=== PATIENT | female | born 1980 ===

== ENCOUNTER 2016-07-24 07:38 | Emergency (ER) | payer OTHER ==
[2016-07-24 07:42] VITALS: BP 129/76; PULSE 87; TEMP 97; O2SAT 98
[2016-07-24 07:43] VITALS: BMI 37.4
--- NOTE | 2016-07-24 09:57 | US ---
HISTORY: Posttraumatic right upper quadrant pain. COMPARISON: None. TECHNIQUE: Sonographic evaluation of the abdomen. FINDINGS: LIVER: Measures 15.7 cm. Normal echogenicity of the liver parenchyma. No mass. No intrahepatic bile duct dilatation. GALLBLADDER: Unremarkable. No gallstones. COMMON BILE DUCT: Measures 2.8 mm. No stones. No dilatation. PANCREAS: Obscured by overlying bowel gas. Non diagnostic assessment of the pancreas. RIGHT KIDNEY: Measures 10.3cm. Normal echogenicity. No calculus, mass, or hydronephrosis. LEFT KIDNEY: Measures 10.4cm. Normal echogenicity. No calculus, mass, or hydronephrosis. SPLEEN: Normal in size and contour. No mass. AORTA: No aneurysmal dilatation. IVC: Unremarkable. OTHER FINDINGS: None. IMPRESSION: No significant or acute findings to account for/ related to the clinical presentation. Limitations of the current examination: Nonvisualization of the pancreas.
--- NOTE | 2016-07-24 10:19 | ED PDOC ---
HPI: General Adult Time Seen by Provider: 07/24/16 07:47 Chief Complaint (Nursing): Upper Extremity Problem/Injury Chief Complaint (Provider): I fell and hurt my R side History Per: Patient History/Exam Limitations: no limitations Onset/Duration Of Symptoms: Days (3) Current Symptoms Are (Timing): Still Present Severity: Mild Additional Complaint(s): 36yo female states slipped in tub 3 days ago, injuring R side abdomen and lower chest. Denies syncope, head or neck injury. Denies weakness, hematemesis or fever since. Normal BM. No nausea or vomiting. No SOB or chest pain but pain when takes deep breath. Past Medical History Reviewed: Historical Data, Nursing Documentation, Vital Signs Vital Signs: Last Vital Signs Temp 97 F L 07/24/16 07:42 Pulse 87 07/24/16 07:42 Resp BP 129/76 07/24/16 07:42 Pulse Ox 98 07/24/16 07:47 - Medical History PMH: Asthma - Surgical History Surgical History: No Surg Hx - Family History Family History: States: Unknown Family Hx - Social History Current smoker - smoking cessation education provided: No Drugs: Denies - Immunization History Hx Influenza Vaccination: No - Home Medications Home Medications: Ambulatory Orders Medication Instructions Recorded Albuterol HFA [Ventolin HFA 90 2 puff IH [id number] PRN #1 bottle 03/02/16 mcg/actuation (8 g)] Albuterol 0.083% [Albuterol 0.083% 2.5 mg IH Q4H PRN #50 neb 05/06/16 Inhal Jeny (2.5 mg/3 ml) UD] Albuterol 0.083% [Albuterol 0.083% 2.5 mg IH Q8 PRN #100 neb 07/19/16 Inhal Jeny (2.5 mg/3 ml) UD] Albuterol HFA [Ventolin HFA 90 2 puff IH Q4 PRN #1 inhaler 07/19/16 mcg/actuation (8 g)] Ibuprofen [Motrin] 1 tab PO Q8 PRN #21 tab 07/19/16 predniSONE [predniSONE Tab] 3 tab PO DAILY #12 tab 07/19/16 Ibuprofen [Motrin Tab] 600 mg PO Q6 PRN #15 tab 07/24/16 - Allergies Allergies/Adverse Reactions: Allergies Allergy/AdvReac Type Severity Reaction Status Date / Time shrimp Allergy URTICARIA Verified 07/19/16 12:45 Review of Systems ROS Statement: Except As Marked, All Systems Reviewed And Found Negative Constitutional: Negative for: Fever Eyes: Negative for: Pain ENT: Negative for: Ear Pain Cardiovascular: Negative for: Chest Pain, Palpitations Respiratory: Positive for: Other (chest wall pain). Negative for: Cough, Shortness of Breath Gastrointestinal: Positive for: Abdominal Pain. Negative for: Nausea, Vomiting Genitourinary Female: Negative for: Dysuria, Frequency Musculoskeletal: Negative for: Neck Pain, Shoulder Pain, Arm Pain, Back Pain, Hand Pain, Leg Pain Skin: Negative for: Rash, Lesions, Jaundice Neurological: Negative for: Weakness, Numbness, Headache, Dizziness Psych: Negative for: Anxiety Physical Exam - Reviewed Nursing Documentation Reviewed: Yes Vital Signs Reviewed: Yes - Physical Exam Appears: Positive for: Well, Non-toxic, No Acute Distress Head Exam: Positive for: ATRAUMATIC, NORMAL INSPECTION, NORMOCEPHALIC Skin: Positive for: Normal Color, Warm, DRY Eye Exam: Positive for: EOMI, Normal appearance, PERRL ENT: Positive for: Normal ENT Inspection Neck: Positive for: Normal, Painless ROM Cardiovascular/Chest: Positive for: Regular Rate, Rhythm Respiratory: Positive for: CNT, Normal Breath Sounds Gastrointestinal/Abdominal: Positive for: Bowel Sounds, Soft, Tenderness (RUQ mild), Other (7cm area ecchymosis/ contusion (appears several days old) to RUQ) Back: Positive for: Normal Inspection Extremity: Positive for: Normal ROM Neurologic/Psych: Positive for: Alert, Oriented - ECG O2 Sat by Pulse Oximetry: 98 Disposition - Clinical Impression Clinical Impression: Rib contusion, Abdominal wall contusion - Disposition Referrals: J Carlos Kendrick MD [Staff Provider] - Condition: STABLE Additional Instructions: Followup with your doctor in 2-3 days if symptoms persist. Take medications as directed for pain. Return to ER for any weakness or worse symptoms. Prescriptions: Ibuprofen [Motrin Tab] 600 mg PO Q6 PRN #15 tab PRN Reason: Pain, Moderate (4-7) Instructions: Contusion in Adults (ED)
--- NOTE | 2016-07-24 10:25 | RAD ---
PROCEDURE: Radiographs of the Chest and Right Ribs. HISTORY: fall R costal pain COMPARISON: None available. TECHNIQUE: Frontal radiograph of the chest and multiple oblique radiographs of the right ribs were obtained. FINDINGS: RIGHT RIBS: No fracture or focal lesion visualized. LUNGS: Clear. PLEURA: No pneumothorax or pleural fluid. CARDIOVASCULAR: Normal sized heart. No pulmonary vascular congestion. OTHER FINDINGS: None. IMPRESSION: Unremarkable radiographs of the chest and right ribs. No right rib fracture.
== END 2016-07-24 10:44 | disposition home or self-care (01) ==
LOC: H.ER 07:38
DX: S39.91XA Unspecified injury of abdomen, initial encounter (principal); S20.219A Contusion of unspecified front wall of thorax, initial encounter; W19.XXXA Unspecified fall, initial encounter; Y92.89 Other specified places as the place of occurrence of the external cause

== ENCOUNTER 2016-09-13 17:05 | Emergency (ER) | payer OTHER ==
[2016-09-13 17:05] VITALS: BMI 37.4
[2016-09-13 17:10] VITALS: BP 129/98; PULSE 104; TEMP 97.6
[2016-09-13] MEDS ORDERED: Albuterol-Ipratrop 3 mg / 0.5 (3 ml) UD INH STA ×3 (17:17→17:44)
[2016-09-13 17:31] VITALS: RESP 18; O2SAT 99
--- NOTE | 2016-09-13 17:42 | ED PDOC ---
HPI: SOB/CHF/COPD Time Seen by Provider: 09/13/16 17:06 Chief Complaint (Nursing): Shortness Of Breath Chief Complaint (Provider): Asthma - SOB, wheezing x 1 week History Per: Patient History/Exam Limitations: no limitations Onset/Duration Of Symptoms: Days Current Symptoms Are (Timing): Still Present Initiating Event: Out Of Medications, Other (Seasonal allergies ) Current Respiratory Medications: Albuterol (Last used this morning) Severity: None Associated Symptoms: denies: Fever, Chills, Sweating, Dizziness, Light- headedness Past Medical History Reviewed: Historical Data, Nursing Documentation, Vital Signs Vital Signs: Last Vital Signs Temp 97.6 F 09/13/16 17:09 Pulse 104 H 09/13/16 17:09 Resp 18 09/13/16 17:15 BP 129/98 H 09/13/16 17:09 Pulse Ox 99 09/13/16 17:43 - Medical History PMH: Asthma - Surgical History Surgical History: No Surg Hx - Family History Family History: States: Unknown Family Hx - Living Arrangements Living Arrangements: With Family - Social History Current smoker - smoking cessation education provided: No Alcohol: None - Immunization History Hx Influenza Vaccination: No - Home Medications Home Medications: Ambulatory Orders Medication Instructions Recorded Albuterol HFA [Ventolin HFA 90 2 puff IH [id number] PRN #1 bottle 03/02/16 mcg/actuation (8 g)] Albuterol 0.083% [Albuterol 0.083% 2.5 mg IH Q4H PRN #50 neb 05/06/16 Inhal Jeny (2.5 mg/3 ml) UD] Albuterol 0.083% [Albuterol 0.083% 2.5 mg IH Q8 PRN #100 neb 07/19/16 Inhal Jeny (2.5 mg/3 ml) UD] Albuterol HFA [Ventolin HFA 90 2 puff IH Q4 PRN #1 inhaler 07/19/16 mcg/actuation (8 g)] Ibuprofen [Motrin] 1 tab PO Q8 PRN #21 tab 07/19/16 predniSONE [predniSONE Tab] 3 tab PO DAILY #12 tab 07/19/16 Ibuprofen [Motrin Tab] 600 mg PO Q6 PRN #15 tab 07/24/16 Albuterol 0.083% [Albuterol 0.083% 2.5 mg IH QID PRN #20 09/13/16 Inhal Jeny (2.5 mg/3 ml) UD] Albuterol HFA [Ventolin HFA 90 1 puff IH BID PRN #1 unit 09/13/16 mcg/actuation (8 g)] Prednisone 50 mg PO DAILY #3 tablet 09/13/16 - Allergies Allergies/Adverse Reactions: Allergies Allergy/AdvReac Type Severity Reaction Status Date / Time shrimp Allergy URTICARIA Verified 09/13/16 17:08 Review of Systems ROS Statement: Except As Marked, All Systems Reviewed And Found Negative Constitutional: Negative for: Fever, Chills Respiratory: Positive for: Shortness of Breath, Wheezing Physical Exam - Reviewed Nursing Documentation Reviewed: Yes Vital Signs Reviewed: Yes - Physical Exam Appears: Positive for: Well, Non-toxic, No Acute Distress Head Exam: Positive for: ATRAUMATIC, NORMAL INSPECTION, NORMOCEPHALIC Skin: Positive for: Normal Color, Warm, DRY Eye Exam: Positive for: Normal appearance ENT: Positive for: Normal ENT Inspection Neck: Positive for: Normal, Painless ROM Cardiovascular/Chest: Positive for: Regular Rate, Rhythm Respiratory: Positive for: Wheezing (Diffuse ). Negative for: Accessory Muscle Use, Respiratory Distress Gastrointestinal/Abdominal: Positive for: Normal Exam, Bowel Sounds, Soft Back: Positive for: Normal Inspection Extremity: Positive for: Normal ROM Neurologic/Psych: Positive for: Alert, Oriented - ECG O2 Sat by Pulse Oximetry: 99 Pulse Ox Interpretation: Normal Medical Decision Making Medical Decision Makin:16 - Pt reports feeling much better. Disposition - Clinical Impression Clinical Impression: Asthma exacerbation - Patient ED Disposition Is Patient to be Admitted: No Counseled Patient/Family Regarding: Diagnosis, Need For Followup, Rx Given - Disposition Referrals: formerly [facility] [Outside] Disposition: Routine/Home Disposition Time: 18:06 Condition: GOOD Prescriptions: Albuterol 0.083% [Albuterol 0.083% Inhal Jeny (2.5 mg/3 ml) UD] 2.5 mg IH QID PRN #20 PRN Reason: Shortness Of Breath Albuterol HFA [Ventolin HFA 90 mcg/actuation (8 g)] 1 puff IH BID PRN #1 unit PRN Reason: Shortness Of Breath Prednisone 50 mg PO DAILY #3 tablet Instructions: Asthma (ED) Forms: [facility] School/Work Excuse
== END 2016-09-13 18:30 | disposition home or self-care (01) ==
LOC: H.ER 17:05
DX: J45.909 Unspecified asthma, uncomplicated (principal)

== ENCOUNTER 2016-09-15 10:35 | Emergency (ER) | payer OTHER ==
[2016-09-15 11:55] VITALS: BMI 28.7
[2016-09-15] MEDS ORDERED: Albuterol-Ipratrop 3 mg / 0.5 (3 ml) UD INH STA ×3 (11:56→11:57)
[2016-09-15 12:03] VITALS: TEMP 97
[2016-09-15] MEDS ORDERED: Albuterol-Ipratrop 3 mg / 0.5 (3 ml) UD ONE (12:24)
--- NOTE | 2016-09-15 14:33 | ED PDOC ---
HPI: SOB/CHF/COPD Time Seen by Provider: 09/15/16 11:38 Chief Complaint (Nursing): Cough, Cold, Congestion Chief Complaint (Provider): Cough, Cold, Congestion History Per: Patient History/Exam Limitations: no limitations Onset/Duration Of Symptoms: Days Current Symptoms Are (Timing): Still Present Initiating Event: Upper Respiratory Illness Quality: Tightness Exacerbating Factor(s): Coughing Current Respiratory Medications: See Home Med List Severity: Mild Associated Symptoms: denies: Fever Additional Complaint(s): Patient is a 36 year old female with a history of asthma, presents to ED for evaluation of wheezing and chest tightness for 1 week. Patient reports using her pump and nebulizer intermittently but symptoms worsened this morning. Patient also reports a non productive cough. Denies chest pain , palpation or fever . Past Medical History Reviewed: Historical Data, Nursing Documentation, Vital Signs Vital Signs: Last Vital Signs Temp 97 F L 09/15/16 12:00 Pulse 76 09/15/16 12:00 Resp 20 09/15/16 12:36 BP 134/80 09/15/16 12:00 Pulse Ox 97 09/15/16 15:09 - Medical History PMH: Asthma - Surgical History Surgical History: No Surg Hx - Family History Family History: States: Unknown Family Hx - Living Arrangements Living Arrangements: With Family - Immunization History Hx Influenza Vaccination: No - Home Medications Home Medications: Ambulatory Orders Medication Instructions Recorded Albuterol HFA [Ventolin HFA 90 2 puff IH [id number] PRN #1 bottle 03/02/16 mcg/actuation (8 g)] Albuterol 0.083% [Albuterol 0.083% 2.5 mg IH Q4H PRN #50 neb 05/06/16 Inhal Jeny (2.5 mg/3 ml) UD] Albuterol 0.083% [Albuterol 0.083% 2.5 mg IH Q8 PRN #100 neb 07/19/16 Inhal Jeny (2.5 mg/3 ml) UD] Albuterol HFA [Ventolin HFA 90 2 puff IH Q4 PRN #1 inhaler 07/19/16 mcg/actuation (8 g)] Ibuprofen [Motrin] 1 tab PO Q8 PRN #21 tab 07/19/16 predniSONE [predniSONE Tab] 3 tab PO DAILY #12 tab 07/19/16 Ibuprofen [Motrin Tab] 600 mg PO Q6 PRN #15 tab 07/24/16 Albuterol 0.083% [Albuterol 0.083% 2.5 mg IH QID PRN #20 09/13/16 Inhal Jeny (2.5 mg/3 ml) UD] Albuterol HFA [Ventolin HFA 90 1 puff IH BID PRN #1 unit 09/13/16 mcg/actuation (8 g)] Prednisone 50 mg PO DAILY #3 tablet 09/13/16 Albuterol HFA [Ventolin HFA 90 2 puff IH [id number] #1 inh 09/15/16 mcg/actuation (8 g)] Fluticasone/Salmeterol 250/50 1 puff IH Q12 #1 inh 09/15/16 [Advair Diskus] Prednisone 50 mg PO DAILY #5 tablet 09/15/16 - Allergies Allergies/Adverse Reactions: Allergies Allergy/AdvReac Type Severity Reaction Status Date / Time shrimp Allergy URTICARIA Verified 09/15/16 12:00 Review of Systems ROS Statement: Except As Marked, All Systems Reviewed And Found Negative Constitutional: Negative for: Fever Cardiovascular: Negative for: Chest Pain, Palpitations Respiratory: Positive for: Cough, Shortness of Breath, Wheezing. Negative for: Sputum Physical Exam - Reviewed Nursing Documentation Reviewed: Yes Vital Signs Reviewed: Yes - Physical Exam Appears: Positive for: Non-toxic, No Acute Distress Skin: Positive for: Normal Color, Warm. Negative for: Rash Eye Exam: Positive for: Normal appearance Neck: Positive for: Normal, Painless ROM Cardiovascular/Chest: Positive for: Regular Rate, Rhythm. Negative for: Murmur Respiratory: Positive for: Wheezing (occasional). Negative for: Accessory Muscle Use, Rhonchi, Respiratory Distress Extremity: Positive for: Normal ROM. Negative for: Pedal Edema Neurologic/Psych: Positive for: Alert, Oriented - ECG O2 Sat by Pulse Oximetry: 97 (RA) Pulse Ox Interpretation: Normal - Progress Re-evaluation Time: 14:58 Condition: Re-examined, Improved Medical Decision Making Medical Decision Making: Time: 1150 Initial impression: Asthma exacerbation Initial plan: -- EKG -- Duoneb x3 and Prednisone PO 1415 Patient on re-evaluation reports feeling better, stable for discharge at this time. Instructed to follow up with PMD Scribe Attestation: Documented by Manasa Kearney acting as a scribe for Bib Ball MD MD Scribe Attestation: All medical record entries made by the Scribe were at my direction and personally dictated by me. I have reviewed the chart and agree that the record accurately reflects my personal performance of the history, physical exam, medical decision making, and the department course for this patient. I have also personally directed, reviewed, and agree with the discharge instructions and disposition. Disposition - Clinical Impression Clinical Impression: Acute asthma exacerbation - Patient ED Disposition Is Patient to be Admitted: No Doctor Will See Patient In The: Office Counseled Patient/Family Regarding: Studies Performed, Diagnosis, Need For Followup - Disposition Referrals: Edwardo Funes [Family Provider] - Disposition: Routine/Home Disposition Time: 14:15 Condition: GOOD Additional Instructions: Return for worsening. Follow up with your PCP in 2-3 days. Prescriptions: Albuterol HFA [Ventolin HFA 90 mcg/actuation (8 g)] 2 puff IH [id number] #1 inh Fluticasone/Salmeterol 250/50 [Advair Diskus] 1 puff IH Q12 #1 inh Prednisone 50 mg PO DAILY #5 tablet Instructions: Asthma (ED)
[2016-09-15 15:16] VITALS: BP 127/78; PULSE 94; RESP 18; O2SAT 98
--- NOTE | 2016-09-16 13:35 | CARD ---
APPROVED REPORT EKG Measurement Heart [id number] ID [id number] <Conclusion> Normal sinus rhythm with sinus arrhythmia Normal ECG
== END 2016-09-15 15:20 | disposition home or self-care (01) ==
LOC: H.ER 10:35
DX: J45.901 Unspecified asthma with (acute) exacerbation (principal)

== ENCOUNTER 2016-12-06 09:25 | Emergency (ER) | payer OTHER ==
[2016-12-06 09:36] VITALS: BP 135/70; PULSE 82; RESP 16; TEMP 97.8; O2SAT 97
[2016-12-06 09:42] VITALS: BMI 39.6
[2016-12-06] MEDS ORDERED: Albuterol-Ipratrop 3 mg / 0.5 (3 ml) UD INH STA (09:54)
--- NOTE | 2016-12-06 10:00 | ED PDOC ---
HPI: Asthma Time Seen by Provider: 12/06/16 09:44 Chief Complaint (Nursing): Cough, Cold, Congestion History Per: Patient History/Exam Limitations: no limitations Onset/Duration Of Symptoms: Gradual (2 days) Current Symptoms Are (Timing): Still Present Associated Symptoms: Dyspnea, Cough. denies: Fever, Hives, Itching, Chest Pain Severity: Mild Additional History Per: Patient Additional Complaint(s): asthma exacerbation similar to prev no relief with inhaler. no recent hospitalization. last steroid use. Past Medical History Reviewed: Historical Data, Nursing Documentation, Vital Signs Vital Signs: Last Vital Signs Temp 97.8 F 12/06/16 09:35 Pulse 82 12/06/16 09:35 Resp 16 12/06/16 09:35 BP 135/70 12/06/16 09:35 Pulse Ox 97 12/06/16 09:35 - Medical History PMH: Asthma - Family History Family History: States: Unknown Family Hx - Living Arrangements Living Arrangements: With Family - Social History Current smoker - smoking cessation education provided: No - Immunization History Hx Influenza Vaccination: No - Home Medications Home Medications: Ambulatory Orders Medication Instructions Recorded Albuterol HFA [Ventolin HFA 90 2 puff IH [id number] PRN #1 bottle 03/02/16 mcg/actuation (8 g)] Albuterol 0.083% [Albuterol 0.083% 2.5 mg IH Q4H PRN #50 neb 05/06/16 Inhal Jeny (2.5 mg/3 ml) UD] Albuterol 0.083% [Albuterol 0.083% 2.5 mg IH Q8 PRN #100 neb 07/19/16 Inhal Jeny (2.5 mg/3 ml) UD] Albuterol HFA [Ventolin HFA 90 2 puff IH Q4 PRN #1 inhaler 07/19/16 mcg/actuation (8 g)] Ibuprofen [Motrin] 1 tab PO Q8 PRN #21 tab 07/19/16 predniSONE [predniSONE Tab] 3 tab PO DAILY #12 tab 07/19/16 Ibuprofen [Motrin Tab] 600 mg PO Q6 PRN #15 tab 07/24/16 Albuterol 0.083% [Albuterol 0.083% 2.5 mg IH QID PRN #20 09/13/16 Inhal Jeny (2.5 mg/3 ml) UD] Albuterol HFA [Ventolin HFA 90 1 puff IH BID PRN #1 unit 09/13/16 mcg/actuation (8 g)] Prednisone 50 mg PO DAILY #3 tablet 09/13/16 Albuterol HFA [Ventolin HFA 90 2 puff IH [id number] #1 inh 09/15/16 mcg/actuation (8 g)] Fluticasone/Salmeterol 250/50 1 puff IH Q12 #1 inh 09/15/16 [Advair Diskus] Prednisone 50 mg PO DAILY #5 tablet 09/15/16 Albuterol Sulfate [Proventil Hfa] 0.09 mg IH Q6 PRN #1 unit 12/06/16 predniSONE [predniSONE Tab] 40 mg PO DAILY 4 Days 12/06/16 - Allergies Allergies/Adverse Reactions: Allergies Allergy/AdvReac Type Severity Reaction Status Date / Time shrimp Allergy URTICARIA Verified 09/15/16 12:00 Review of Systems ROS Statement: Except As Marked, All Systems Reviewed And Found Negative Constitutional: Negative for: Fever, Chills Cardiovascular: Negative for: Chest Pain, Palpitations Respiratory: Positive for: Cough, Shortness of Breath, Wheezing Gastrointestinal: Negative for: Nausea, Vomiting, Abdominal Pain Physical Exam - Reviewed Nursing Documentation Reviewed: Yes Vital Signs Reviewed: Yes - Physical Exam Appears: Positive for: Well Head Exam: Positive for: ATRAUMATIC, NORMAL INSPECTION, NORMOCEPHALIC Eye Exam: Positive for: Normal appearance, EOMI, PERRL Neck: Positive for: Normal, Painless ROM, Supple Cardiovascular/Chest: Positive for: Regular Rate, Rhythm, Chest Non Tender. Negative for: Edema, Gallop, Murmur, Bradycardia, Tachycardia Respiratory: Positive for: Wheezing (mild scattered). Negative for: Decreased Breath Sounds, Accessory Muscle Use, Crackles, Rales, Rhonchi, Stridor, Respiratory Distress Gastrointestinal/Abdominal: Positive for: Normal Exam, Bowel Sounds, Soft. Negative for: Tenderness Back: Positive for: Normal Inspection. Negative for: L CVA Tenderness, R CVA Tenderness Extremity: Positive for: Normal ROM. 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 Negative for: Motor/Sensory Deficits - ECG O2 Sat by Pulse Oximetry: 97 Pulse Ox Interpretation: Normal - Radiology X-Ray: Interpreted by Me X-Ray Interpretation: No Acute Disease - Progress ED Course And Treament: wheezing resolved. advise steroid and close f/u. Re-evaluation Time: 11:08 Condition: Improved Disposition - Clinical Impression Clinical Impression: Acute asthma exacerbation - Patient ED Disposition Is Patient to be Admitted: No Counseled Patient/Family Regarding: Studies Performed, Diagnosis, Need For Followup, Rx Given - Disposition Referrals: [facility] [Outside] (2 to 3 days) Disposition: Routine/Home Disposition Time: 11:10 Condition: GOOD Prescriptions: Albuterol Sulfate [Proventil Hfa] 0.09 mg IH Q6 PRN #1 unit PRN Reason: Wheezing predniSONE [predniSONE Tab] 40 mg PO DAILY 4 Days Instructions: Asthma (ED) Forms: [facility] (Japanese)
[2016-12-06] MEDS ORDERED: Albuterol-Ipratrop 3 mg / 0.5 (3 ml) UD ONE (10:09)
--- NOTE | 2016-12-06 13:24 | RAD ---
HISTORY: sob COMPARISON: No prior. TECHNIQUE: Chest PA and lateral FINDINGS: LUNGS: No active pulmonary disease. PLEURA: No significant pleural effusion identified. No pneumothorax apparent. CARDIOVASCULAR: Normal. OSSEOUS STRUCTURES: No significant abnormalities. VISUALIZED UPPER ABDOMEN: Normal. OTHER FINDINGS: None. IMPRESSION: No active disease.
== END 2016-12-06 11:23 | disposition home or self-care (01) ==
LOC: H.ER 09:25
DX: J45.901 Unspecified asthma with (acute) exacerbation (principal)

== ENCOUNTER 2017-04-20 11:12 | Emergency (ER) | payer OTHER ==
[2017-04-20 11:12] VITALS: BMI 39.6
[2017-04-20] MEDS ORDERED: Albuterol-Ipratrop 3 mg / 0.5 (3 ml) UD INH STA (12:01)
[2017-04-20] MEDS: Albuterol-Ipratrop 3 mg / 0.5 (3 ml) UD INH STA ×2 (12:07→12:31)
[2017-04-20 14:55] VITALS: BP 124/78; PULSE 74; RESP 20; TEMP 98; O2SAT 98
--- NOTE | 2017-04-20 21:31 | CARD ---
APPROVED REPORT EKG Measurement Heart [id number] TN 144P-3 [id number] <Conclusion> Normal sinus rhythm Incomplete right bundle branch block Borderline ECG
== END 2017-04-20 14:55 | disposition home or self-care (01) ==
LOC: H.ER 11:12
DX: J45.901 Unspecified asthma with (acute) exacerbation (principal)
CPT/HCPCS: 93005; 94640; 96372; 99282; J2930

== ENCOUNTER 2017-06-16 09:10 | Emergency (ER) | payer OTHER ==
[2017-06-16 09:16] VITALS: BMI 39.9
[2017-06-16 09:18] VITALS: BP 133/76; PULSE 96; RESP 20; TEMP 99.9; O2SAT 95
--- NOTE | 2017-06-16 10:00 | ED PDOC ---
HPI: CCC, URI, Sore Throat Time Seen by Provider: 06/16/17 09:27 Chief Complaint (Nursing): Cough, Cold, Congestion Chief Complaint (Provider): Runny Nose, Cough, Sneezing History Per: Patient History/Exam Limitations: no limitations Onset/Duration Of Symptoms: Days (x 2) Current Symptoms Are (Timing): Still Present Additional Complaint(s): Odin is a 37 y/o female complaining of runny nose, sneezing, and cough since Wednesday. Patient has been using Dayquil to treat her symptoms. She denies fever. PMD: Dr. Renner Past Medical History Reviewed: Historical Data, Nursing Documentation, Vital Signs Vital Signs: Last Vital Signs Temp 99.9 F H 06/16/17 09:16 Pulse 96 H 06/16/17 09:16 Resp 20 06/16/17 09:16 BP 133/76 06/16/17 09:16 Pulse Ox 95 06/16/17 10:02 - Medical History PMH: Asthma - Family History Family History: States: Unknown Family Hx - Social History Current smoker - smoking cessation education provided: No - Immunization History Hx Influenza Vaccination: No - Home Medications Home Medications: Ambulatory Orders Medication Instructions Recorded Albuterol HFA [Ventolin HFA 90 2 puff IH [id number] PRN #1 bottle 03/02/16 mcg/actuation (8 g)] Albuterol 0.083% [Albuterol 0.083% 2.5 mg IH Q4H PRN #50 neb 05/06/16 Inhal Jeny (2.5 mg/3 ml) UD] Albuterol 0.083% [Albuterol 0.083% 2.5 mg IH Q8 PRN #100 neb 07/19/16 Inhal Jeny (2.5 mg/3 ml) UD] Albuterol HFA [Ventolin HFA 90 2 puff IH Q4 PRN #1 inhaler 07/19/16 mcg/actuation (8 g)] Ibuprofen [Motrin] 1 tab PO Q8 PRN #21 tab 07/19/16 predniSONE [predniSONE Tab] 3 tab PO DAILY #12 tab 07/19/16 Ibuprofen [Motrin Tab] 600 mg PO Q6 PRN #15 tab 07/24/16 Albuterol 0.083% [Albuterol 0.083% 2.5 mg IH QID PRN #20 09/13/16 Inhal Jeny (2.5 mg/3 ml) UD] Albuterol HFA [Ventolin HFA 90 1 puff IH BID PRN #1 unit 09/13/16 mcg/actuation (8 g)] Prednisone 50 mg PO DAILY #3 tablet 09/13/16 Albuterol HFA [Ventolin HFA 90 2 puff IH [id number] #1 inh 09/15/16 mcg/actuation (8 g)] Fluticasone/Salmeterol 250/50 1 puff IH Q12 #1 inh 09/15/16 [Advair Diskus] Prednisone 50 mg PO DAILY #5 tablet 09/15/16 Albuterol Sulfate [Proventil Hfa] 0.09 mg IH Q6 PRN #1 unit 12/06/16 predniSONE [predniSONE Tab] 40 mg PO DAILY 4 Days tab 12/06/16 Albuterol 0.083% [Albuterol 0.083% 2.5 mg IH QID PRN #20 04/20/17 Inhal Jeny (2.5 mg/3 ml) UD] Albuterol HFA [Ventolin HFA 90 1 puff IH BID PRN #1 unit 04/20/17 mcg/actuation (8 g)] predniSONE [predniSONE Tab] 20 mg PO DAILY #12 tab 04/20/17 Loratadine [Claritin] 10 mg PO DAILY PRN #10 06/16/17 - Allergies Allergies/Adverse Reactions: Allergies Allergy/AdvReac Type Severity Reaction Status Date / Time shrimp Allergy URTICARIA Verified 09/15/16 12:00 Review of Systems ROS Statement: Except As Marked, All Systems Reviewed And Found Negative Constitutional: Negative for: Fever ENT: Positive for: Nose Discharge, Nose Congestion Respiratory: Positive for: Cough Physical Exam - Reviewed Nursing Documentation Reviewed: Yes Vital Signs Reviewed: Yes - Physical Exam Appears: Positive for: Well (speaking full sentences), Non-toxic, No Acute Distress ENT: Positive for: Pharynx Is (clear), Nasal Congestion Cardiovascular/Chest: Positive for: Regular Rate, Rhythm. Negative for: Murmur Respiratory: Positive for: Normal Breath Sounds. Negative for: Respiratory Distress Neurologic/Psych: Positive for: Alert, Oriented - ECG O2 Sat by Pulse Oximetry: 95 (RA) Pulse Ox Interpretation: Normal Medical Decision Making Medical Decision Making: Time: 9:58 Initial Impression: URI Initial Plan: --Urine Scribe Attestation: Documented by Adams Escobedo, acting as a scribe for Dr. Kamini Villareal MD. Provider Scribe Attestation: All medical record entries made by the Scribe were at my direction and personally dictated by me. I have reviewed the chart and agree that the record accurately reflects my personal performance of the history, physical exam, medical decision making, and the department course for this patient. I have also personally directed, reviewed, and agree with the discharge instructions and disposition. Disposition - Clinical Impression Clinical Impression: URI (upper respiratory infection) - Disposition Disposition: Routine/Home Disposition Time: 10:01 Condition: STABLE Additional Instructions: FOLLOW-UP WITH PMD WITHIN 2 DAYS FOR REEVALUATION. Prescriptions: Loratadine [Claritin] 10 mg PO DAILY PRN #10 PRN Reason: Allergy Symptoms Instructions: Upper Respiratory Infection (ED) Forms: [employer] (Swiss)
== END 2017-06-16 10:14 | disposition home or self-care (01) ==
LOC: H.ER 09:10
DX: J06.9 Acute upper respiratory infection, unspecified (principal); J45.909 Unspecified asthma, uncomplicated

== ENCOUNTER 2017-09-17 20:48 | Emergency (ER) | payer OTHER ==
[2017-09-17 20:49] VITALS: BMI 39.9
[2017-09-17 21:07] VITALS: TEMP 97.8
[2017-09-17] MEDS ORDERED: Albuterol 0.083% Inhal Sol (2.5 mg/3 mL) UD INH STA (21:26)
[2017-09-17] MEDS ORDERED: Albuterol-Ipratrop 3 mg / 0.5 (3 ml) UD INH STA ×3 (21:26→22:19)
[2017-09-17] MEDS ORDERED: Albuterol 0.083% Inhal Sol (2.5 mg/3 mL) UD ONE (21:40)
[2017-09-17] MEDS ORDERED: Albuterol-Ipratrop 3 mg / 0.5 (3 ml) UD ONE ×2 (21:41→22:37)
[2017-09-17 22:01] VITALS: O2SAT 99
--- NOTE | 2017-09-17 22:47 | ED PDOC ---
HPI: SOB/CHF/COPD Time Seen by Provider: 09/17/17 21:08 Chief Complaint (Nursing): Shortness Of Breath Chief Complaint (Provider): shortness of breath History Per: Patient History/Exam Limitations: no limitations Onset/Duration Of Symptoms: Days Current Symptoms Are (Timing): Still Present Associated Symptoms: denies: Fever, Chest Pain, Dizziness Additional Complaint(s): Odin Gonzales is a 37 year old female with a past medical history of asthma, who is presenting to the ED with complaints of worsening dry cough, asthma symptoms, and nasal congestion onset 1 week ago. Patient reports taking 2 pumps of Pro-Air at 7 pm and Singulair this morning. Patient states that she has a history of admissions to the hospital for asthma: last admitted 3 years ago, but denies any intubations. Patient reports her asthma is usually triggered by the change in season and seasonal allergies. She denies any fever, ear/throat pain, rash, dizziness, headache, neck pain/stiffness, nausea, vomiting, chest pain, or abdominal pain. LMP: August 28 2017 PMD: Edwardo Funes Past Medical History Reviewed: Historical Data, Nursing Documentation, Vital Signs Vital Signs: Last Vital Signs Temp 97.8 F 09/17/17 21:02 Pulse 78 09/17/17 23:57 Resp 16 09/17/17 23:57 BP 109/76 09/17/17 23:57 Pulse Ox 99 09/18/17 04:57 - Medical History PMH: Asthma - Surgical History Surgical History: No Surg Hx - Family History Family History: States: Unknown Family Hx - Social History Current smoker - smoking cessation education provided: No Alcohol: Social Drugs: Denies - Home Medications Home Medications: Ambulatory Orders Medication Instructions Recorded Albuterol HFA [Ventolin HFA 90 2 puff IH [id number] PRN #1 bottle 03/02/16 mcg/actuation (8 g)] Albuterol 0.083% [Albuterol 0.083% 2.5 mg IH Q4H PRN #50 neb 05/06/16 Inhal Jeny (2.5 mg/3 ml) UD] Albuterol 0.083% [Albuterol 0.083% 2.5 mg IH Q8 PRN #100 neb 07/19/16 Inhal Jeny (2.5 mg/3 ml) UD] Albuterol HFA [Ventolin HFA 90 2 puff IH Q4 PRN #1 inhaler 07/19/16 mcg/actuation (8 g)] Ibuprofen [Motrin] 1 tab PO Q8 PRN #21 tab 07/19/16 predniSONE [predniSONE Tab] 3 tab PO DAILY #12 tab 07/19/16 Ibuprofen [Motrin Tab] 600 mg PO Q6 PRN #15 tab 07/24/16 Albuterol 0.083% [Albuterol 0.083% 2.5 mg IH QID PRN #20 09/13/16 Inhal Jeny (2.5 mg/3 ml) UD] Albuterol HFA [Ventolin HFA 90 1 puff IH BID PRN #1 unit 09/13/16 mcg/actuation (8 g)] Prednisone 50 mg PO DAILY #3 tablet 09/13/16 Albuterol HFA [Ventolin HFA 90 2 puff IH [id number] #1 inh 09/15/16 mcg/actuation (8 g)] Fluticasone/Salmeterol 250/50 1 puff IH Q12 #1 inh 09/15/16 [Advair Diskus] Prednisone 50 mg PO DAILY #5 tablet 09/15/16 Albuterol Sulfate [Proventil Hfa] 0.09 mg IH Q6 PRN #1 unit 12/06/16 predniSONE [predniSONE Tab] 40 mg PO DAILY 4 Days tab 12/06/16 Albuterol 0.083% [Albuterol 0.083% 2.5 mg IH QID PRN #20 04/20/17 Inhal Jeny (2.5 mg/3 ml) UD] Albuterol HFA [Ventolin HFA 90 1 puff IH BID PRN #1 unit 04/20/17 mcg/actuation (8 g)] predniSONE [predniSONE Tab] 20 mg PO DAILY #12 tab 04/20/17 Loratadine [Claritin] 10 mg PO DAILY PRN #10 06/16/17 Albuterol Sulfate [Ventolin Hfa] 1 puff IH Q4 #1 each 09/17/17 Promethazine/Dextromethorphan 5 ml PO Q6 PRN #150 ml 09/17/17 [Promethazine-Dm Syrup] predniSONE [predniSONE Tab] 40 mg PO DAILY #10 tab 09/17/17 - Allergies Allergies/Adverse Reactions: Allergies Allergy/AdvReac Type Severity Reaction Status Date / Time shrimp Allergy URTICARIA Verified 09/15/16 12:00 Review of Systems ROS Statement: Except As Marked, All Systems Reviewed And Found Negative Constitutional: Negative for: Fever ENT: Positive for: Nose Congestion Cardiovascular: Negative for: Chest Pain Respiratory: Positive for: Cough, Shortness of Breath Gastrointestinal: Negative for: Nausea, Vomiting, Abdominal Pain Physical Exam - Reviewed Nursing Documentation Reviewed: Yes Vital Signs Reviewed: Yes - Physical Exam Appears: Positive for: Well, Non-toxic, No Acute Distress Head Exam: Positive for: NORMOCEPHALIC Skin: Positive for: Normal Color, Warm, DRY Eye Exam: Positive for: EOMI, PERRL ENT: Positive for: Pharynx Is (clear, uvula midline), TM Is/Are (nonbulging, nonerythematous bilaterally), Other (Mucus membranes moist, airway patent (-) stridor). Negative for: Sinus Pain/Drainage, Nasal Congestion, Pharyngeal Erythema Neck: Positive for: Painless ROM, Supple Cardiovascular/Chest: Positive for: Regular Rate, Rhythm Respiratory: Positive for: Normal Breath Sounds, Wheezing (scattered inspiratory ), Other (even and nonlabored breathing, speaking in full sentences.). Negative for: Accessory Muscle Use, Stridor, Respiratory Distress Gastrointestinal/Abdominal: Positive for: Soft. Negative for: Tenderness, Mass , Distended, Guarding Back: Negative for: L CVA Tenderness, R CVA Tenderness, Vertebral Tenderness Extremity: Positive for: Normal ROM Neurologic/Psych: Positive for: Alert, Oriented (x3), Gait (steady in ED). Negative for: Motor/Sensory Deficits, Aphasia, Facial Droop - Laboratory Results Urine POC: Negative - ECG O2 Sat by Pulse Oximetry: 99 (RA) Pulse Ox Interpretation: Normal Medical Decision Making Medical Decision Making: Time: 22:08 Impression: Asthma Exacerbation, Seasonal Allergies Plan: --ED --Albuterol 2.5 mg INH x1 --Duoneb 3 ml INH x3 --predniSONE 60 mg PO --Peak Flow Pre/Post Tx 2300 On re-evaluation, patient resting comfortably and reports resolution of shortness of breath and dyspnea. Patient states she feels much improved. Patient remains awake, alert, oriented x 3 and is laying in bed comfortably. On exam, neck is supple, lungs are clear to auscultation with resolution of wheezing, abdomen is soft and non tender, heart is at regular rate and rhythm. Respirations even and non-labored, patient speaking in full sentences. Repeat neuro shows no focal findings. VSS, stable for discharge. Based on history, exam and diagnostic results plan will be for discharge home with outpatient follow up. Advised to follow up with primary care physician in 1-2 days without fail. Advised to take medication as prescribed. Return to the emergency room at any time for any new or worsening symptoms. Patient states she fully agrees with and understands discharge instructions. States that she agrees with the plan and disposition. Verbalized and repeated discharge instructions and plan. I have given the patient opportunity to ask any additional questions. Scribe Attestation: Documented by Becky Ochoa, acting as a scribe for La Singh PA-C. Provider Scribe Attestation: All medical record entries made by the Scribe were at my direction and personally dictated by me. I have reviewed the chart and agree that the record accurately reflects my personal performance of the history, physical exam, medical decision making, and the department course for this patient. I have also personally directed, reviewed, and agree with the discharge instructions and disposition. Disposition - Clinical Impression Clinical Impression: Asthma exacerbation, Cough in adult, Seasonal allergies - Patient ED Disposition Is Patient to be Admitted: No Counseled Patient/Family Regarding: Diagnosis, Need For Followup, Rx Given - Disposition Referrals: Edwardo Funes [Staff Provider] - Disposition: Routine/Home Disposition Time: 23:00 Condition: STABLE Additional Instructions: FOLLOW UP WITH PMD IN 1-2 DAYS WITHOUT FAIL. RETURN TO ED WITH ANY NEW OR WORSENING SYMPTOMS. Prescriptions: Albuterol Sulfate [Ventolin Hfa] 1 puff IH Q4 #1 each predniSONE [predniSONE Tab] 40 mg PO DAILY #10 tab Promethazine/Dextromethorphan [Promethazine-Dm Syrup] 5 ml PO Q6 PRN #150 ml PRN Reason: Cough Instructions: Asthma in Adults, Avoiding Asthma Triggers, Medicines for Asthma , Seasonal Allergies in Adults Forms: [employer] (Welsh) Print Language: SWEDISH - POA Present On Arrival: None
[2017-09-17 23:59] VITALS: BP 109/76; PULSE 78; RESP 16
== END 2017-09-18 00:09 | disposition home or self-care (01) ==
LOC: H.ER 20:48
DX: J45.901 Unspecified asthma with (acute) exacerbation (principal); R05 Cough; J30.2 Other seasonal allergic rhinitis; J44.9 Chronic obstructive pulmonary disease, unspecified

== ENCOUNTER 2018-04-06 09:45 | Emergency (ER) | payer OTHER ==
[2018-04-06 09:45] VITALS: BMI 39.9
[2018-04-06] MEDS ORDERED: Albuterol-Ipratrop 3 mg / 0.5 (3 ml) UD INH STA ×2 (10:38→12:08)
--- NOTE | 2018-04-06 10:55 | RAD ---
Date of service: 04/06/2018 HISTORY: cough COMPARISON: 12/06/2016 and 04/11/2016 TECHNIQUE: Chest PA and lateral FINDINGS: LUNGS: No interval consolidation. Tiny infrahilar punctate hyperdensity similar to 2016-may be benign granulomatous change no worrisome changes since 2016 suggested. No significant appearing upper lobe granulomatous changes appreciated PLEURA: No significant pleural effusion identified. No pneumothorax apparent. CARDIOVASCULAR: No aortic atherosclerotic calcification present. Normal cardiac size. No pulmonary vascular congestion. OSSEOUS STRUCTURES: No significant abnormalities. VISUALIZED UPPER ABDOMEN: Normal. OTHER FINDINGS: None. IMPRESSION: No interval acute cardiopulmonary pathology appreciated. No infiltrate noted
[2018-04-06] MEDS ORDERED: Albuterol-Ipratrop 3 mg / 0.5 (3 ml) UD ONE ×2 (11:06→12:47)
[2018-04-06 11:18] LABS: BASO % 0.5 % (0.0-2.0); EOS # 0.1 K/uL (0.0-0.7); EOS % 3.1 % (0.0-4.0); HEMOGLOBIN 11.1 g/dL (12.0-16.0); LYMPH # 0.6 K/uL (1.0-4.3); LYMPH % 12.8 % (20.0-40.0); MEAN CELL VOLUME 77.6 fl (81.0-99.0); MEAN CORPUSCULAR HEMOGLOBIN 23.9 pg (27.0-31.0); MEAN CORPUSCULAR HGB CONC 30.9 g/dL (33.0-37.0); MEAN PLATELET VOLUME 9.7 fl (7.2-11.7); MONO # 0.3 K/uL (0.0-0.8); MONO % 7.5 % (0.0-10.0); NEUT # 3.3 K/uL (1.8-7.0); NEUT % 76.1 % (50.0-75.0); RBC 4.64 Mil/uL (3.80-5.20); RED CELL DISTRIBUTION WIDTH 17.4 % (11.5-14.5); WHITE BLOOD COUNT 4.4 K/uL (4.8-10.8)
[2018-04-06 11:22] LABS: BLOOD UREA NITROGEN 7 mg/dl (7-17); CALCIUM 9.5 mg/dL (8.4-10.2); GFR NON-AFRICAN AMERICAN > 60
--- NOTE | 2018-04-06 12:05 | ED PDOC ---
History of Present Illness History of Present Illness: 38 yo F with PMHx of asthma presents to the ED with complaint of cough, sorethroat, and asthma exacerbation for 2 days. Pt states she felt achy and febrile this morning. Home asthma medications have not helped with the symptoms. Denies sick contacts. COugh is non-productive. NO previous intubations. HPI: Influenza Time Seen by Provider: 04/06/18 10:28 Chief Complaint: Cough, Cold, Congestion History Per: EMS Exam Limitations: no limitations Have you had recent travel within the past 21 days to any of: No Onset/Duration Of Symptoms: Days (2) Sick Contacts (Context): None Hx Influenza Vaccination: No Past Medical History Vital Signs: Last Vital Signs Temp 100.0 F H 04/06/18 09:53 Pulse 101 H 04/06/18 09:53 Resp 20 04/06/18 09:53 BP 129/77 04/06/18 09:53 Pulse Ox 99 04/06/18 09:53 - Medical History PMH: Asthma - Family History Family History: States: Unknown Family Hx - Immunization History Hx Influenza Vaccination: No - Home Medications Home Medications: Ambulatory Orders Medication Instructions Recorded RX: Albuterol HFA [Ventolin HFA 90 2 puff IH [id number] PRN #1 bottle 03/02/16 mcg/actuation (8 g)] Albuterol 0.083% [Albuterol 0.083% 2.5 mg IH Q4H PRN #50 neb 05/06/16 Inhal Jeny (2.5 mg/3 ml) UD] Ibuprofen [Motrin] 1 tab PO Q8 PRN #21 tab 07/19/16 RX: Albuterol 0.083% [Albuterol 2.5 mg IH Q8 PRN #100 neb 07/19/16 0.083% Inhal Jeny (2.5 mg/3 ml) UD] RX: Albuterol HFA [Ventolin HFA 90 2 puff IH Q4 PRN #1 inhaler 07/19/16 mcg/actuation (8 g)] RX: predniSONE [predniSONE Tab] 3 tab PO DAILY #12 tab 07/19/16 RX: Ibuprofen [Motrin Tab] 600 mg PO Q6 PRN #15 tab 07/24/16 Albuterol 0.083% [Albuterol 0.083% 2.5 mg IH QID PRN #20 09/13/16 Inhal Jeny (2.5 mg/3 ml) UD] RX: Albuterol HFA [Ventolin HFA 90 1 puff IH BID PRN #1 unit 09/13/16 mcg/actuation (8 g)] RX: Prednisone 50 mg PO DAILY #3 tablet 09/13/16 Fluticasone/Salmeterol 250/50 1 puff IH Q12 #1 inh 09/15/16 [Advair Diskus] RX: Albuterol HFA [Ventolin HFA 90 2 puff IH [id number] #1 inh 09/15/16 mcg/actuation (8 g)] RX: Prednisone 50 mg PO DAILY #5 tablet 09/15/16 Albuterol Sulfate [Proventil Hfa] 0.09 mg IH Q6 PRN #1 unit 12/06/16 RX: predniSONE [predniSONE Tab] 40 mg PO DAILY 4 Days tab 12/06/16 Albuterol 0.083% [Albuterol 0.083% 2.5 mg IH QID PRN #20 04/20/17 Inhal Jeny (2.5 mg/3 ml) UD] RX: Albuterol HFA [Ventolin HFA 90 1 puff IH BID PRN #1 unit 04/20/17 mcg/actuation (8 g)] RX: predniSONE [predniSONE Tab] 20 mg PO DAILY #12 tab 04/20/17 Loratadine [Claritin] 10 mg PO DAILY PRN #10 06/16/17 Albuterol Sulfate [Ventolin Hfa] 1 puff IH Q4 #1 each 09/17/17 RX: Promethazine/Dextromethorphan 5 ml PO Q6 PRN #150 ml 09/17/17 [Promethazine-Dm Syrup] RX: predniSONE [predniSONE Tab] 40 mg PO DAILY #10 tab 09/17/17 Oseltamivir Phosphate [Tamiflu] 75 mg PO BID #10 capsule 04/06/18 Oseltamivir Phosphate [Tamiflu] 75 mg PO BID #5 capsule 04/06/18 - Allergies Allergies/Adverse Reactions: Allergies Allergy/AdvReac Type Severity Reaction Status Date / Time shrimp Allergy URTICARIA Verified 09/15/16 12:00 Review of Systems Constitutional: Positive for: Fever, Chills, Weakness, Malaise Cardiovascular: Negative for: Chest Pain, Palpitations, Edema Respiratory: Positive for: Cough, Shortness of Breath, Wheezing Gastrointestinal: Negative for: Nausea, Vomiting, Abdominal Pain Genitourinary Female: Negative for: Dysuria Skin: Negative for: Rash Neurological: Negative for: Weakness, Numbness Physical Exam - Physical Exam Appears: Positive for: Uncomfortable Skin: Positive for: Normal Color Eye Exam: Positive for: Normal appearance Neck: Positive for: Normal Cardiovascular/Chest: Positive for: Regular Rate, Rhythm Respiratory: Positive for: Wheezing Gastrointestinal/Abdominal: Positive for: Normal Exam, Soft Extremity: Positive for: Normal ROM. 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 Neg ative for: Motor/Sensory Deficits Medical Decision Making Medical Decision Making: Pt with wheezing/asthma exacerbation brought on by URI with cough. Influenza postive -cxr -Duonebs -Tamiflu -Solumedrol -reassess pt - Laboratory Results Result Diagrams: 04/06/18 11:03 04/06/18 11:03 - ECG O2 Sat by Pulse Oximetry: 99 Disposition - Clinical Impression Clinical Impression: Influenza, Asthma exacerbation - Disposition Disposition Time: 13:10 Condition: IMPROVED Additional Instructions: Take Tamiflu as prescribed. Follow up with primary medical doctor if symptoms not improved in one week. Do not go to work for one week. Return to the emergency department if asthma symptoms or flu symptoms worsen or if new sy mptoms develop. Prescriptions: Oseltamivir Phosphate [Tamiflu] 75 mg PO BID #5 capsule Oseltamivir Phosphate [Tamiflu] 75 mg PO BID #10 capsule Instructions: Flu, Adult (DC) Forms: [employer] (Bengali), [facility] School/Work Excuse Print Language: DIVEHI
[2018-04-06] MEDS: Albuterol-Ipratrop 3 mg / 0.5 (3 ml) UD INH STA ×2 (12:47→12:59)
[2018-04-06 13:17] VITALS: BP 128/78; PULSE 78; RESP 19; TEMP 97.6
[2018-04-07 12:10] VITALS: O2SAT 99
== END 2018-04-06 13:17 | disposition home or self-care (01) ==
LOC: H.ER 09:45
DX: J11.1 Influenza due to unidentified influenza virus with other respiratory manifestations (principal); J45.901 Unspecified asthma with (acute) exacerbation
CPT/HCPCS: 71046; 80048; 81025; 85025; 87804; 94640; 96374; 99283; J2930

== ENCOUNTER 2018-08-08 18:22 | Emergency (ER) | payer OTHER ==
[2018-08-08 18:22] VITALS: BMI 39.9
[2018-08-08] MEDS ORDERED: Albuterol 0.083% Inhal Sol (2.5 mg/3 mL) UD INH STA (19:57)
[2018-08-08] MEDS ORDERED: Albuterol 0.083% Inhal Sol (2.5 mg/3 mL) UD ONE (20:09)
--- NOTE | 2018-08-08 20:18 | ED PDOC ---
HPI: CCC, URI, Sore Throat Time Seen by Provider: 08/08/18 19:50 Chief Complaint (Nursing): Cough, Cold, Congestion Chief Complaint (Provider): Cough History Per: Patient History/Exam Limitations: no limitations Have you had recent travel within the past 21 days to any of the following countries: [place], [place], [place] or [place]?: No Onset/Duration Of Symptoms: Days Current Symptoms Are (Timing): Still Present Location Of Pain: Throat Associated Symptoms: Cough. denies: Sputum Additional History Per: Patient Additional Complaint(s): 38yo female, with history of asthma (prior hospitalization, no intubation), comes to ER reporting worsening asthma symptoms for the past week. She reports shortness of breath in the morning and states her inhaler only gives transient relief. She additionally reports a "lump" on her throat, and states she has been having difficulty swallowing. She denies any throat pain, neck pain, fever, chills, chest pain. No additional complaints. PMD: Dr. Crane Past Medical History Reviewed: Historical Data, Nursing Documentation, Vital Signs Vital Signs: Last Vital Signs Temp 98.2 F 08/08/18 19:06 Pulse 72 08/08/18 19:06 Resp 18 08/08/18 19:06 BP 131/82 08/08/18 19:06 Pulse Ox 100 08/08/18 19:06 - Medical History PMH: Asthma - Surgical History Surgical History: No Surg Hx - Family History Family History: States: Unknown Family Hx - Immunization History Hx Influenza Vaccination: No - Home Medications Home Medications: Ambulatory Orders Medication Instructions Recorded Albuterol HFA [Ventolin HFA 90 2 puff IH [id number] PRN #1 bottle 03/02/16 mcg/actuation (8 g)] Albuterol 0.083% [Albuterol 0.083% 2.5 mg IH Q4H PRN #50 neb 05/06/16 Inhal Jeny (2.5 mg/3 ml) UD] Albuterol 0.083% [Albuterol 0.083% 2.5 mg IH Q8 PRN #100 neb 07/19/16 Inhal Jeny (2.5 mg/3 ml) UD] Albuterol HFA [Ventolin HFA 90 2 puff IH Q4 PRN #1 inhaler 07/19/16 mcg/actuation (8 g)] Ibuprofen [Motrin] 1 tab PO Q8 PRN #21 tab 07/19/16 predniSONE [predniSONE Tab] 3 tab PO DAILY #12 tab 07/19/16 Ibuprofen [Motrin Tab] 600 mg PO Q6 PRN #15 tab 07/24/16 Albuterol 0.083% [Albuterol 0.083% 2.5 mg IH QID PRN #20 09/13/16 Inhal Jeny (2.5 mg/3 ml) UD] Albuterol HFA [Ventolin HFA 90 1 puff IH BID PRN #1 unit 09/13/16 mcg/actuation (8 g)] Prednisone 50 mg PO DAILY #3 tablet 09/13/16 Albuterol HFA [Ventolin HFA 90 2 puff IH [id number] #1 inh 09/15/16 mcg/actuation (8 g)] Fluticasone/Salmeterol 250/50 1 puff IH Q12 #1 inh 09/15/16 [Advair Diskus] Prednisone 50 mg PO DAILY #5 tablet 09/15/16 Albuterol Sulfate [Proventil Hfa] 0.09 mg IH Q6 PRN #1 unit 12/06/16 predniSONE [predniSONE Tab] 40 mg PO DAILY 4 Days tab 12/06/16 Albuterol 0.083% [Albuterol 0.083% 2.5 mg IH QID PRN #20 04/20/17 Inhal Jeny (2.5 mg/3 ml) UD] Albuterol HFA [Ventolin HFA 90 1 puff IH BID PRN #1 unit 04/20/17 mcg/actuation (8 g)] predniSONE [predniSONE Tab] 20 mg PO DAILY #12 tab 04/20/17 Loratadine [Claritin] 10 mg PO DAILY PRN #10 06/16/17 Albuterol Sulfate [Ventolin Hfa] 1 puff IH Q4 #1 each 09/17/17 Promethazine/Dextromethorphan 5 ml PO Q6 PRN #150 ml 09/17/17 [Promethazine-Dm Syrup] predniSONE [predniSONE Tab] 40 mg PO DAILY #10 tab 09/17/17 Oseltamivir Phosphate [Tamiflu] 75 mg PO BID #10 capsule 04/06/18 Oseltamivir Phosphate [Tamiflu] 75 mg PO BID #5 capsule 04/06/18 Amoxicillin 500 mg PO BID 7 Days #14 tablet 08/08/18 predniSONE [predniSONE Tab] 20 mg PO DAILY #9 tab 08/08/18 - Allergies Allergies/Adverse Reactions: Allergies Allergy/AdvReac Type Severity Reaction Status Date / Time shrimp Allergy URTICARIA Verified 08/08/18 19:06 Review of Systems ROS Statement: Except As Marked, All Systems Reviewed And Found Negative Constitutional: Negative for: Fever, Chills ENT: Positive for: Other (difficulty swallowing; "lump" on throat). Negative for: Throat Swelling Cardiovascular: Negative for: Chest Pain Respiratory: Positive for: Cough, Shortness of Breath Physical Exam - Reviewed Nursing Documentation Reviewed: Yes Vital Signs Reviewed: Yes - Physical Exam Comments: GENERAL APPEARANCE: Patient is awake, alert, oriented x 3, in no acute distress. SKIN: Warm, dry; (-) cyanosis. EYES: (-) conjunctival pallor. ENMT: Mucous membranes moist. Airway patent: (-) stridor. Pharynx: (-) swelling, (+) erythema, (+) tonsilar edema, no exudate NECK: (-) tenderness, (-) stiffness, (+) right anterior cervical lymphadenopathy, mild tenderness. CHEST AND RESPIRATORY: (+) faint end inspiratory wheeze at bilateral apices; (- ) rales, (-) rhonchi, (-) rub. HEART AND CARDIOVASCULAR: (-) irregularity; (-) murmur, (-) gallop. ABDOMEN AND GI: Soft; (-) tenderness. EXTREMITIES: (-) deformity, (-) edema. NEURO AND PSYCH: Mental status as above; (-) focal findings. - ECG O2 Sat by Pulse Oximetry: 100 (RA) Pulse Ox Interpretation: Normal Medical Decision Making Medical Decision Making: Asthma exacerbation, throat discomfort Plan: -- Albuterol 2.5mg INH -- Prednisone 60mg PO -- Rapid strep 2108 Rapid strep negative On reassessment, patient with clear lung sounds. Informed of strep test results, "lump" is likely due to lymphadenopathy so patient to be given antibiotics prescription. Patient informed to take medications as prescribed and instructed on strict follow up with PMD. Return precautions given. Stable for discharge home. Discussed results, diagnosis, treatment, return precautions, and f/u with pt who is understanding, in agreement and stable for dc Scribe Attestation: Documented by Twila Brown, acting as a scribe for SATURNINO Ribera Provider Scribe Attestation: All medical record entries made by the Scribe were at my direction and pers onally dictated by me. I have reviewed the chart and agree that the record accurately reflects my personal performance of the history, physical exam, medical decision making, and the department course for this patient. I have also personally directed, reviewed, and agree with the discharge instructions and disposition. Disposition - Clinical Impression Clinical Impression: Acute asthma exacerbation, Pharyngitis, Lymph node enlargement - Patient ED Disposition Is Patient to be Admitted: No Counseled Patient/Family Regarding: Studies Performed, Diagnosis, Need For Followup, Rx Given - Disposition Referrals: Devin Crane Jr., MD [Family Provider] - Disposition: Routine/Home Disposition Time: 21:15 Condition: IMPROVED Additional Instructions: Return to ED for new or worsening symptoms, fever >100.4, difficulty breathing, unable to swallow, chest pain, drooling. FOllow up with your primary doctor in 2 -3 days. Take medications as prescribed until finished. Prescriptions: Amoxicillin 500 mg PO BID 7 Days #14 tablet predniSONE [predniSONE Tab] 20 mg PO DAILY #9 tab Instructions: Asthma in Adults, Sore Throat, Adult (DC), Lymphadenitis Forms: [facility] (Samoan), [facility] ED School/Work Excuse Print Language: [place] - POA Present On Arrival: None
[2018-08-08 21:42] VITALS: BP 130/82; PULSE 66; RESP 16; TEMP 97.5
[2018-08-09 12:24] VITALS: O2SAT 100
== END 2018-08-08 21:41 | disposition home or self-care (01) ==
LOC: H.ER 18:22
DX: J45.901 Unspecified asthma with (acute) exacerbation (principal); J02.9 Acute pharyngitis, unspecified; R59.9 Enlarged lymph nodes, unspecified

== ENCOUNTER 2018-09-11 06:25 | Emergency (ER) | payer OTHER ==
[2018-09-11 06:26] VITALS: BMI 39.9
[2018-09-11 06:38] VITALS: TEMP 98.4
[2018-09-11] MEDS ORDERED: Albuterol-Ipratrop 3 mg / 0.5 (3 ml) UD IH STA ×2 (07:08)
--- NOTE | 2018-09-11 07:11 | ED PDOC ---
HPI: SOB/CHF/COPD Time Seen by Provider: 09/11/18 07:03 Chief Complaint (Nursing): Shortness Of Breath History Per: Patient Onset/Duration Of Symptoms: Days (3) Current Symptoms Are (Timing): Still Present Initiating Event: Out Of Medications Severity: Mild Additional Complaint(s): SOB, wheezing and nonproductive cough x 3 days. denies fever. Has had allergy sxs. Mild improvement with nebs. Past Medical History Vital Signs: Last Vital Signs Temp 98.4 F 09/11/18 06:36 Pulse 103 H 09/11/18 06:36 Resp 23 09/11/18 06:36 BP 143/88 09/11/18 06:36 Pulse Ox 97 09/11/18 06:36 Primary Care Provider: Devin Crane Jr. - Medical History PMH: Asthma - Family History Family History: States: Unknown Family Hx - Immunization History Hx Influenza Vaccination: No - Home Medications Home Medications: Ambulatory Orders Medication Instructions Recorded Albuterol HFA [Ventolin HFA 90 2 puff IH [id number] PRN #1 bottle 03/02/16 mcg/actuation (8 g)] Albuterol 0.083% [Albuterol 0.083% 2.5 mg IH Q4H PRN #50 neb 05/06/16 Inhal Jeny (2.5 mg/3 ml) UD] Albuterol 0.083% [Albuterol 0.083% 2.5 mg IH Q8 PRN #100 neb 07/19/16 Inhal Jeny (2.5 mg/3 ml) UD] Albuterol HFA [Ventolin HFA 90 2 puff IH Q4 PRN #1 inhaler 07/19/16 mcg/actuation (8 g)] Ibuprofen [Motrin] 1 tab PO Q8 PRN #21 tab 07/19/16 predniSONE [predniSONE Tab] 3 tab PO DAILY #12 tab 07/19/16 Ibuprofen [Motrin Tab] 600 mg PO Q6 PRN #15 tab 07/24/16 Albuterol 0.083% [Albuterol 0.083% 2.5 mg IH QID PRN #20 09/13/16 Inhal Jeny (2.5 mg/3 ml) UD] Albuterol HFA [Ventolin HFA 90 1 puff IH BID PRN #1 unit 09/13/16 mcg/actuation (8 g)] Prednisone 50 mg PO DAILY #3 tablet 09/13/16 Albuterol HFA [Ventolin HFA 90 2 puff IH [id number] #1 inh 09/15/16 mcg/actuation (8 g)] Fluticasone/Salmeterol 250/50 1 puff IH Q12 #1 inh 09/15/16 [Advair Diskus] Prednisone 50 mg PO DAILY #5 tablet 09/15/16 Albuterol Sulfate [Proventil Hfa] 0.09 mg IH Q6 PRN #1 unit 12/06/16 predniSONE [predniSONE Tab] 40 mg PO DAILY 4 Days tab 12/06/16 Albuterol 0.083% [Albuterol 0.083% 2.5 mg IH QID PRN #20 04/20/17 Inhal Jeny (2.5 mg/3 ml) UD] Albuterol HFA [Ventolin HFA 90 1 puff IH BID PRN #1 unit 04/20/17 mcg/actuation (8 g)] predniSONE [predniSONE Tab] 20 mg PO DAILY #12 tab 04/20/17 Loratadine [Claritin] 10 mg PO DAILY PRN #10 06/16/17 Albuterol Sulfate [Ventolin Hfa] 1 puff IH Q4 #1 each 09/17/17 Promethazine/Dextromethorphan 5 ml PO Q6 PRN #150 ml 09/17/17 [Promethazine-Dm Syrup] predniSONE [predniSONE Tab] 40 mg PO DAILY #10 tab 09/17/17 Oseltamivir Phosphate [Tamiflu] 75 mg PO BID #10 capsule 04/06/18 Oseltamivir Phosphate [Tamiflu] 75 mg PO BID #5 capsule 04/06/18 Amoxicillin 500 mg PO BID 7 Days #14 tablet 08/08/18 predniSONE [predniSONE Tab] 20 mg PO DAILY #9 tab 08/08/18 Albuterol 0.083% [Albuterol 3 ml IH Q8 #1 neb 09/11/18 Sulfate 3 Ml] Albuterol HFA [Ventolin HFA 90 2 puff IH Q4H #1 puff 09/11/18 mcg/actuation (8 g)] Cetirizine HCl [Zyrtec] 10 mg PO DAILY #10 capsule 09/11/18 Prednisone 50 mg PO DAILY #5 tab 09/11/18 - Allergies Allergies/Adverse Reactions: Allergies Allergy/AdvReac Type Severity Reaction Status Date / Time shrimp Allergy URTICARIA Verified 08/08/18 19:06 Review of Systems Constitutional: Negative for: Fever ENT: Positive for: Nose Congestion Cardiovascular: Negative for: Chest Pain Respiratory: Positive for: Cough, Wheezing Physical Exam - Reviewed Nursing Documentation Reviewed: Yes Vital Signs Reviewed: Yes - Physical Exam Appears: Positive for: Non-toxic, No Acute Distress Head Exam: Positive for: ATRAUMATIC, NORMAL INSPECTION, NORMOCEPHALIC Skin: Positive for: Normal Color, Warm, DRY Eye Exam: Positive for: EOMI, Normal appearance, PERRL ENT: Positive for: Normal ENT Inspection Neck: Positive for: Normal, Painless ROM Cardiovascular/Chest: Positive for: Regular Rate, Rhythm Respiratory: Positive for: Rhonchi, Wheezing. Negative for: Respiratory Distress Gastrointestinal/Abdominal: Positive for: Normal Exam, Soft Back: Positive for: Normal Inspection Extremity: Positive for: Normal ROM Neurological/Psych: Positive for: Awake, Alert, Normal Tone - ECG O2 Sat by Pulse Oximetry: 97 - Progress Re-evaluation Time: 08:08 Condition: Improved (No wheezing post tx) Disposition - Clinical Impression Clinical Impression: Asthma exacerbation - Patient ED Disposition Is Patient to be Admitted: No Counseled Patient/Family Regarding: Diagnosis, Need For Followup, Rx Given - Disposition Referrals: [facility] [Outside] Disposition: Routine/Home Disposition Time: 08:08 Condition: FAIR Prescriptions: Albuterol 0.083% [Albuterol Sulfate 3 Ml] 3 ml IH Q8 #1 neb Albuterol HFA [Ventolin HFA 90 mcg/actuation (8 g)] 2 puff IH Q4H #1 puff Cetirizine HCl [Zyrtec] 10 mg PO DAILY #10 capsule Prednisone 50 mg PO DAILY #5 tab Instructions: Asthma in Adults Forms: [facility] (British)
[2018-09-11] MEDS ORDERED: Albuterol-Ipratrop 3 mg / 0.5 (3 ml) UD ONE (07:17)
[2018-09-11 08:21] VITALS: BP 132/74; PULSE 89; RESP 19; O2SAT 98
== END 2018-09-11 08:21 | disposition home or self-care (01) ==
LOC: H.ER 06:25
DX: J45.901 Unspecified asthma with (acute) exacerbation (principal)